=== PATIENT | female | born 1950 | race Two or more races ===

== ENCOUNTER 2023-12-06 15:55 | Emergency (ER) | payer MEDICAID, OTHER ==
[~2023-12-06] VITALS: Ht 167.6 cm; Wt 72.7 kg
[2023-12-06] MEDS ORDERED: DICL1GEL59 EX (17:12)
[2023-12-06] MEDS: methylPREDNISolone SOD SUCC 125 MG/2 ML VL IM ONE (17:53)
[2023-12-06] MEDS: KETOROLAC TROMETH 30 MG/ML 1ML VIAL IM ONE (17:54)
[2023-12-06 18:58] VITALS: BP 165/82; PULSE 82; RESP 20; TEMP 97.4; O2SAT 100
== END 2023-12-06 19:00 | disposition home or self-care (01) ==
LOC: ER 15:55
DX: M25.561 Pain in right knee (principal); I10 Essential (primary) hypertension
CPT/HCPCS: 73562; 96372; 99284; J1885; J2919